=== PATIENT | female | born 1985 | race Caucasian/White ===

== ENCOUNTER 2025-07-12 14:07 | Emergency (ER) | payer OTHER, SELFPAY ==
[2025-07-12 14:20] VITALS: BP 135/79; PULSE 97; RESP 20; TEMP 36.8; O2SAT 99
--- NOTE | 2025-07-12 14:37 | ED.ANIMALBIT ---
HPI - Animal Bite General Chief Complaint: Animal Bite Stated Complaint: Dog Bite Time Seen by Provider: 07/12/25 14:37 Source: patient, RN notes reviewed and old records reviewed Mode of arrival: ambulatory Limitations: no limitations History of Present Illness HPI narrative: 40-year-old female presents Express Care with complaints of being bitten by neighbor's dog on at around 2024.. Patient has puncture wounds to left buttocks, back of left thigh with bruising,puncture wound to the left inner medial proximal lower leg that measures 2cm X 1cm and scratches to left ankle region. Patient reports that she has cleansed areas with peroxide and placed GINNA ointment on wounds and has wrapped left thigh and left proximal lower leg with mila wraps. Patient reports that her tetanus is not up to date. Patient states throbbing pain to wounds. MD complaint: animal bite Onset (ago): hour(s) (Patient reports on the at 2024) Animal: dog Location: buttocks and other (left leg) Pain description: other (throbbing) Severity scale (1-10): 8 Treatments prior to arrival: wound dressing(s) (cleansed with peroxide and applied GINNA ointment) Related Data Allergies Allergy/AdvReac Type Severity Reaction Status Date / Time diphenhydramine (From AdvReac Intermediate RAPID Verified 07/12/25 14:26 Benadryl) HEART RATE Review of Systems Review of Systems: CONSTITUTIONAL: Denies fever, chills, or sweats. EYES: Denies visual changes, redness, or discharge. ENT: Denies rhinorrhea, congestion, sore throat, or otalgia. CARDIOVASCULAR: Denies chest pain, palpitations, or edema. RESPIRATORY: Denies cough or dyspnea. GASTROINTESTINAL: Denies abdominal pain, nausea, vomiting, or diarrhea. GENITOURINARY: Denies dysuria or hematuria. SKIN: dog bites and scratches to left buttock, left posterior thigh, inner proximal lower leg and to ankle area.. MUSCULOSKELETAL: Denies back pain, joint pain, or myalgia. NEUROLOGIC: Denies headache, numbness, or weakness. PSYCHIATRIC: Positive for history of anxiety or depression. All systems reviewed & are unremarkable except as noted in HPI and below (positive history of) [facility] Social History Social History (Updated 07/13/25 @ 21:39 by Meenu aGtica APRN) Smoking status: Never smoker Alcohol intake: current Alcohol use details: social Substance use: current Substance use type: marijuana Gender identity (if verbalized by the patient): Female Comments At time of signature, agree with nursing past medical, surgical, social and family history. There is no relevant family history pertinent to the presenting complaint Exam Narrative: GENERAL: Well-appearing, well-nourished, unkept and in no acute distress. HEAD: Normocephalic, atraumatic. EYES: PERRLA and EOMI. ENT: Nares clear, no rhinorrhea or epistaxis. Mucous membranes moist.TM's normal throat pink with no swelling NECK: Supple. no lymphadenopathy CHEST: Clear to auscultation. No respiratory distress.SAO2 99% on room air HEART: Regular rate and rhythm. No murmur heard. Normal peripheral pulses. ABDOMEN: Soft, nontender, nondistended, normal active bowel sounds. EXTREMITIES: Normal range of motion. No edema. SKIN: Warm, dry, no rash. Patient presents with dog bites and scratches, left buttocks scratches, posterior left thigh eith scratches and puncture wounds with bruising noted, inner proximal lower leg punctures with wound measuring 2cm X 1cm with some bruising and to left ankle region scratches.wounds cleansed by nurising staff with wound cleanser and GINNA ointment applied large band-aides to left thigh and left lower leg area with Telfa and Coban to wound at proximal medial aspect of lower leg. NEURO: No focal deficits. Alert and oriented x3. Course Course Level of Care: Express Care Visit Vital Signs Vital signs: Vital Signs Temperature 36.8 C 07/12/25 14:20 Pulse Rate 97 07/12/25 14:20 Respiratory Rate 20 07/12/25 14:20 Blood Pressure 135/79 07/12/25 14:20 Pulse Oximetry 99 07/12/25 14:20 Oxygen Delivery Room Air 07/12/25 14:20 Temperature 36.8 C 07/12/25 14:20 Pulse Rate 97 07/12/25 14:20 Respiratory Rate 20 07/12/25 14:20 Blood Pressure 135/79 07/12/25 14:20 Pulse Oximetry 99 07/12/25 14:20 Oxygen Delivery Room Air 07/12/25 14:20 reviewed MDM MDM Narrative Medical decision making narrative: 40 year old female presents to clinic with complaints of dog bites and scratches to left buttock, left upper posterior thigh, left proximal medial lower leg which measures [id number] and to left ankle region occurring on 07/10/2025.. Wound cleansing and dressing performed in clinic and patient received update Boostrix without reaction. Wound care reviewed with patient with understanding voiced, RX for Augmentin and mupiricin ointment to patient's pharmacy and instructed to take Ibuprofen and Tylenol for any pain. Anticipatory guidance and reasons to seek care in ED reviewed with patient with understanding voiced. Differential Diagnosis Differential Diagnosis: Differential diagnostic considerations for animal bites include bite by animal, human bite, rabies contact, musculoskeletal injury, retained FB.dog bites left leg and buttocks Critical Care Time Critical Care Time Critical Care Time: No Discharge Plan Discharge Clinical Impression: Dog bite Patient Disposition: Home Condition: Stable Instructions: Antibiotic Form, Animal Bite (ED) Additional Instructions: cleanse wounds 2 times daily with liquid Dial soap rinse well apply mupirocin ointment and dressings of choice watch for increasing infection--redness, swelling, drainage antibiotic as prescribed take all doses follow up with PCP in 7-10 days for a wound check recheck if develop fever, chills, increasing symptom Go to the ER if your symptoms become worse of if ANY new symptoms develop Tylenol or ibuprofen for any fever pain follow-up with your PCP for any concerns and evaluation of healing If your symptoms persist, change or worsen significantly before you can contact your personal physician then please, without delay, go to the emergency department for further evaluation. Follow-up with PCP in 7-10 days or sooner if needed Follow up with PCP soon in regards to your blood pressure which is elevated above threshold for referral. Blood pressure above 120/80 may indicate pre-hypertension.135/79 Patient Language: Mongolian Prescriptions: New amoxicillin-pot clavulanate 875-125 mg tablet 1 tablet PO Q12H Qty: 20 0RF Rx Instructions: take with food recommend probiotic or eating Activia yogurt while taking this medication ibuprofen 600 mg tablet 600 mg PO QID PRN (Reason: fever or pain) Qty: 30 0RF mupirocin [Centany] 2 % ointment 1 applic topical BID Qty: 22 0RF Follow-up/Referrals: PHYSICIAN,PLANT CHANGER [Primary Care Provider, Internal Medicine] Time of Disposition: 14:44 Quality Dalila Coma Scale Eyes: Open Verbal: Oriented and Alert Motor: Follows Commands Dalila Coma Total Score: 15
[2025-07-12] MEDS: TETANUS,DIPHTHERIA,AC PERTUSSIS ADULT (0.5 ML) BOOSTRIX IM (14:54)
== END 2025-07-12 15:09 | disposition home or self-care (01) ==
PROVIDERS: Emergency Provider Registered Nurse; Referring Provider Family Medicine
DX: S30.870A Other superficial bite of lower back and pelvis, initial encounter (principal); X58.XXXA Exposure to other specified factors, initial encounter
CPT/HCPCS: 90715; 99213; G0463